=== PATIENT | female | born 1950 | race Caucasian/White ===

== ENCOUNTER 2023-08-18 14:00 | Outpatient (AMB) | payer BC, SELFPAY ==
[2023-08-18 14:11] VITALS: BP 120/70; PULSE 85; TEMP 36.6; O2SAT 98; BMI 26.2
--- NOTE | 2023-08-18 14:11 | AM.OFFWIN_ITS ---
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 Allergies No Known Allergies Allergy (Verified 08/18/23 14:11) Do you need a note to return to daycare/school/sports/work: No HPI HPI Comments History of Present Illness Details 73 y/o female patient who presents to [facility] with c/o cough since the weekend. Review of Systems Const All systems reviewed & are unremarkable except as noted in HPI and below Physical Exam Vital Signs: Last Vital Signs Temp 97.9 F 08/18/23 14:11 Pulse 85 08/18/23 14:11 BP 120/70 08/18/23 14:11 Pulse Ox 98 08/18/23 14:11 Oxygen Delivery Method Room Air 08/18/23 14:11 BMI result Body Mass Index 26.2 Const General: comfortable and no acute distress Orientation/consciousness: patient oriented x3 HEENT Head: Yes normocephalic Ears: external ears normal and TM's normal bilaterally General nose exam: Normal nasal mucous membranes and turbinates present Face and sinus: Yes sinuses nontender Mouth: moist mucous membranes Throat: Yes posterior oropharynx normal Resp Effort & Inspection: normal respiratory effort and able to speak in complete sentences Auscultation: clear to auscultation bilaterally, no crackles, no rales, no rhonchi and no wheezes Cardio Rate: regular rate Rhythm: regular rhythm Neuro General: patient oriented x3 Assessment & Plan Assessment & Plan (1) Cough in adult: Code(s): R05.9 - Cough, unspecified Plan: - OTC cough remedies - Take medications as directed. Medications: New acetaminophen-codeine 120-12 mg/5 mL 10 mL PO BEDTIME PRN 118 mL 0RF cough R05.9 - Cough, unspecified benzonatate 100 mg PO TID 30 caps 0RF R05.9 - Cough, unspecified acetaminophen-codeine 120-12 mg/5 mL 10 mL PO BEDTIME PRN 118 mL 0RF cough R05.9 - Cough, unspecified benzonatate 100 mg PO TID 30 caps 0RF R05.9 - Cough, unspecified Coding Level of Care Code New Pt Level 3 (69197) Diagnoses Cough in adult R05.9 Time Spent (min) 15
== END 2023-08-18 14:33 | disposition home or self-care (01) ==
PROVIDERS: PCP Internal Medicine; Visit Provider Nurse Practitioner Family
DX: R05.9 Cough, unspecified (principal)
CPT/HCPCS: 99203